=== PATIENT | male | born 1965 | race Caucasian/White ===

== ENCOUNTER 2017-01-19 07:12 | Day surgery (SDC) | payer OTHER ==
[2017-01-18 12:37] LABS: BASOPHILS 0.8 %; BASOPHILS ABSOLUTE 0.08 10/3/uL (0.0-0.16); EOSINOPHILS 1.4 %; EOSINOPHILS ABSOLUTE 0.14 10/3/uL (0.0-0.53); HEMATOCRIT 46.2 % (40.0-51.0); HEMOGLOBIN 15.8 g/dL (13.6-17.8); IMMATURE GRANULOCYTES 0.4 %; IMMATURE GRANULOCYTES ABSOLUTE 0.04 10/3/uL (0.0-0.11); LYMPHOCYTES 21.2 %; LYMPHOCYTES ABSOLUTE 2.07 10/3/uL (0.67-4.30); MEAN CORPUS HGB CONC 34.2 g/dL (32.0-36.0); MEAN CORPUSCULAR HEMOGLOB 30.2 pg (26.0-34.0); MEAN CORPUSCULAR VOLUME 88.3 fL (80-100); MEAN PLATELET VOLUME 10.5 fL (9.2-13.0); MONOCYTES 4.1 %; NEUTROPHILS 72.1 %; NEUTROPHILS ABSOLUTE 7.05 10/3/uL (2.02-8.40); PLATELET COUNT 294 10/3/uL (150-400); RBC DISTRIBUTION WIDTH 13.1 % (12.0-16.0); RED CELL COUNT 5.23 10/6/uL (4.7-6.1); WHITE BLOOD CELLS 9.8 10/3/uL (4.5-10.5)
[2017-01-18 12:39] LABS: MANUAL DIFF NO %
[2017-01-18 13:13] LABS: BUN (BLOOD UREA NITROGEN) 12 MG/DL (6-23); CALCIUM, SERUM 9.1 MG/DL (8.5-10.4); CHLORIDE, SERUM 102 MMOL/L (96-112); CO2 (CARBON DIOXIDE) 28 MMOL/L (24-34); CREATININE 0.86 MG/DL (0.70-1.30); GFR AFRICAN AMERICAN 115 ML/MIN (>=60); GFR NON AFRICAN AMERICAN 99 ML/MIN (>=60); GLUCOSE, SERUM 93 MG/DL (60-99); POTASSIUM, SERUM 4.6 MMOL/L (3.5-5.3); SODIUM, SERUM 138 MMOL/L (135-148)
--- NOTE | ~2017-01-19 | OP ---
Record Of Operation [facility] [address] [facility] [place]. [address] NAME: RAHUL ACEVEDO JR : 61 STATUS : [facility] PAT#: [id number] AGE: 51 ADM/REG DATE : 01/19/17 MR#: [id number] REPORT SERV DATE: 01/19/17 DICTATED BY: SANTIAGO KRAUSE DATE: 01/19/17 REPORT STATUS : Draft TRANSCRIBED BY: MODKalen DATE: 01/19/17 DATE OF PROCEDURE: 01/19/2017 SERVICE: Otolaryngology. PREOPERATIVE DIAGNOSES: 1. Bilateral chronic sinusitis. 2. Deviated nasal septum. POSTOPERATIVE DIAGNOSIS: 1. Bilateral chronic sinusitis. 2. Deviated nasal septum. PROCEDURES: 1. Bilateral endoscopic frontal sinusotomy. 2. Bilateral endoscopic sphenoid sinusotomy with removal of contents. 3. Bilateral endoscopic total ethmoidectomy. 4. Bilateral endoscopic maxillary antrostomy. 5. Septoplasty. SURGEON: Santiago Krause MD. ANESTHESIA: General endotracheal anesthesia. ESTIMATED BLOOD LOSS: 20 mL. COMPLICATIONS: None. SPECIMEN: 1. Nasal bone and cartilage. 2. Right nasal contents. 3. Left nasal contents. FINDINGS: The patient had a sharply deviated bony nasal septum to the right. Had thick inspissated infected ethmoid cells on both sides, and a thick mucus and polyps in the sphenoid sinus bilaterally. STATEMENT OF MEDICAL NECESSITY: This is a 51-year-old male, who presented to me with history of chronic headaches. He had been tried on standard allergy therapy including topical nasal steroid, nasal rinses. He had also been on several rounds of antibiotics and failing to get relief. CT scan showed shields sinus disease. Given this history, I recommended functional endoscopic sinus surgery and correction of his deviated nasal septum. STATEMENT OF OPERATION: The patient was brought to the operating room in supine position, transferred over to the operating room table. After pressure points were padded and general endotracheal anesthesia was established, his nose was prepared with 4% topical cocaine Record Of Operation [facility] [address] [place]. [address] NAME: RAHUL ACEVEDO JR : 61 STATUS : [facility] PAT#: [id number] AGE: 51 ADM/REG DATE : 01/19/17 MR#: [id number] REPORT SERV DATE: 01/19/17 DICTATED BY: SANTIAGO KRAUSE DATE: 01/19/17 REPORT STATUS : Draft TRANSCRIBED BY: EJ DATE: 01/19/17 soaked pledgets followed by injection of 1% lidocaine with epinephrine. His head was placed in the reverse Trendelenburg position. The [employer] image guidance system was calibrated and found to be working. Once this was completed, the patient was draped out for sinonasal surgery. A Devante's incision was made on the left side. The septal flap was elevated in the subperichondrial and subperiosteal plane on the left side with a Grupo elevator. The bony cartilaginous junction was gently with a Grupo elevator and the contralateral mucoperiosteum was elevated off the bony nasal septum. Once this was completed, the portion of the deviated bony septum was isolated first by making a superior cut, and then an inferior cut. The portion of the deviated bony septum was then removed with a Judy forceps. Once this was completed, the Devante's incision was closed with three interrupted 4-0 chromic gut sutures. Next, using a 0-degree endoscope, the right side of the nose was visualized. Injections were performed at the root of the middle turbinate lateral nasal wall and anterior head of the middle turbinate. The turbinate was gently medialized. There was a small radhika bullosa that was crushed in the mean time, then using a 45 degree scope, the frontal sinus outflow tract was evaluated. There was polypoid mucosa covering the natural outflow. Using the [employer] RELIEVA Balloon System, I was able to thread the wire into the frontal sinus. I was able to confirm accurate placement with pinpoint light distribution over the frontal sinus. I advanced the balloon over the wire, and inflated three separate times to 12 atmospheres for 3 seconds. The balloon and wire were removed. The 45 degree scope was used to confirm wide outflow tract. This process was repeated for the right side. The same balloon system was used to dilate both the maxillary sinus os. I did keep the uncinate process intact on both sides. There was some thick mucus. I irrigated and suctioned out at the left maxillary sinus. Again, I achieved successful ballooning of the maxillary sinus os to 12 atmospheres for 3 seconds. I did two separate inflations on each sinus. Next, I injected the nasal septum with 1% lidocaine with epinephrine all the way back to the face of the sphenoid, and then on the patient's right- hand side, I entered into a posterior ethmoid cell. On the CT scan, this posterior ethmoid cell was right where the natural os should be and was effectively blocking the sphenoid sinus on that side. I went to the right side, performed the same injection method, and I was able to successfully cannulate the sphenoid ostium with the wire and balloon. I inflated it to 12 atmospheres for 3 seconds. We got a wide sphenoidotomy. This in turn also helped me using image guidance to determine that I had not passed through the posterior wall of the pneumatized air cell into the sphenoid sinus on the left. Next, on the left- hand side, I removed all the anterior and posterior ethmoid cells carefully with straight Blakesley forceps and a microdebrider. The skull base and the lamina papyracea were well- visualized and confirmed with image guidance. I followed this all the way back to the posterior ethmoid cell that I had opened previously. Then using image guidance, I poked through the posterior wall of the posterior ethmoid cell into the sphenoid sinus and I widen the sinusotomy with a Kerrison rongeur. Once I made an entry into the sinus, thick inspissated mucus was removed, and suctioned from the sinus cavity itself. I made a wide osteotomy crossing the trans sinus septum in the middle and connecting it with the right sphenoid sinus. Once this was completed, I used my landmark of the skull base to work from posterior to anterior removing all the remaining posterior and anterior ethmoid cells. I got to the frontal sinus. I removed some agger nasi cells and polypoid mucosa around the frontal sinus outflow tract. I repeated this process for the right-hand side again carefully removing all the air cells between the skull base and lamina papyracea in the septum working posterior to anteriorly. Once I was satisfied that I removed all the Record Of Operation [facility] [address] [facility] [id number] NAME: RAHUL ACEVEDO : 61 STATUS : [facility] PAT#: [id number] AGE: 51 ADM/REG DATE : 01/19/17 MR#: [id number] REPORT SERV DATE: 01/19/17 DICTATED BY: SANTIAGO KRAUSE DATE: 01/19/17 REPORT STATUS : Draft TRANSCRIBED BY: EJ DATE: 01/19/17 diseased tissue and widely opened the sinuses, I used Stammberger Sinu-Foam to coat the lining of the sinus on both sides. I allowed that to sit and I suctioned off the excess. Once the excess was suctioned out thoroughly, and I had established adequate hemostasis, I placed Propel eluting stents in both sides in the standard fashion between the middle turbinate and the lateral nasal wall filling the ethmoid cavity. I confirmed appropriate placement with the 0 degree SinuScope. When this was completed, I removed the scope. I placed two Hernandez splints coated in bacitracin and secured it to the anterior septum with a 2 0 nylon stitch. I then suctioned out the stomach and oropharynx thoroughly with an orogastric tube. This concluded the case. I turned the patient back over to Anesthesia, where he was awoken, was extubated, and transferred to the PACU in stable condition. PS/EJ Santiago Krause MD / [id number] CC: MD Caro Soto M.D.
[~2017-01-19 07:12] MED LIST: ALTA5 PO; BYSTOLIC2.5 MG PO; EXCEDRIN TENSI1 EACH PO; HALF81 PO; LIPITOR40 PO; NITROSTAT0.4 MG SL; PROTONIX PO; ZOLOFT25 MG PO
== END 2017-01-19 16:36 | disposition home or self-care (01) ==
LOC: SDC 07:12
PROVIDERS: Otolaryngology
PROC: 09TV4ZZ Resection of Left Ethmoid Sinus, Percutaneous Endoscopic Approach (ICD-10-PCS; 2017-01-19)
PROC: 09TU4ZZ Resection of Right Ethmoid Sinus, Percutaneous Endoscopic Approach (ICD-10-PCS; 2017-01-19)
PROC: 099R4ZZ Drainage of Left Maxillary Sinus, Percutaneous Endoscopic Approach (ICD-10-PCS; 2017-01-19)
PROC: 099Q4ZZ Drainage of Right Maxillary Sinus, Percutaneous Endoscopic Approach (ICD-10-PCS; 2017-01-19)
PROC: 099M0ZZ Drainage of Nasal Septum, Open Approach (ICD-10-PCS; principal; 2017-01-19 08:15)
PROC: 09BT4ZZ Excision of Left Frontal Sinus, Percutaneous Endoscopic Approach (ICD-10-PCS; 2017-01-19 08:15)
PROC: 09BS4ZZ Excision of Right Frontal Sinus, Percutaneous Endoscopic Approach (ICD-10-PCS; 2017-01-19 08:15)
DX: J32.9 Chronic sinusitis, unspecified (principal); J34.2 Deviated nasal septum; F17.210 Nicotine dependence, cigarettes, uncomplicated; I25.10 Atherosclerotic heart disease of native coronary artery without angina pectoris; I25.2 Old myocardial infarction; I10 Essential (primary) hypertension; F41.9 Anxiety disorder, unspecified; E78.00 Pure hypercholesterolemia, unspecified; K21.9 Gastro-esophageal reflux disease without esophagitis; Z95.1 Presence of aortocoronary bypass graft; Z79.82 Long term (current) use of aspirin; Z79.2 Long term (current) use of antibiotics; Z79.899 Other long term (current) drug therapy
CPT/HCPCS: 80048; 85025; 88300; 88305; 93005; A9270-GY; C1725; C1726; C2625; J0690; J2250; J2270; J2370; J2405; J2710; J3010

== ENCOUNTER 2017-04-29 05:31 | Day surgery (SDC) | payer OTHER ==
[2017-04-26 12:38] LABS: BASOPHILS 0.6 %; BASOPHILS ABSOLUTE 0.05 10/3/uL (0.0-0.16); EOSINOPHILS 1.7 %; EOSINOPHILS ABSOLUTE 0.14 10/3/uL (0.0-0.53); HEMATOCRIT 45.1 % (40.0-51.0); HEMOGLOBIN 15.3 g/dL (13.6-17.8); IMMATURE GRANULOCYTES 0.5 %; IMMATURE GRANULOCYTES ABSOLUTE 0.04 10/3/uL (0.0-0.11); LYMPHOCYTES 25.3 %; LYMPHOCYTES ABSOLUTE 2.09 10/3/uL (0.67-4.30); MANUAL DIFF NO %; MEAN CORPUS HGB CONC 33.9 g/dL (32.0-36.0); MEAN CORPUSCULAR HEMOGLOB 30.5 pg (26.0-34.0); MEAN PLATELET VOLUME 10.7 fL (9.2-13.0); MONOCYTES 5.6 %; MONOCYTES ABSOLUTE 0.46 10/3/uL (0.21-1.20); NEUTROPHILS 66.3 %; NEUTROPHILS ABSOLUTE 5.49 10/3/uL (2.02-8.40); PLATELET COUNT 285 10/3/uL (150-400); RBC DISTRIBUTION WIDTH 13.1 % (12.0-16.0); RED CELL COUNT 5.01 10/6/uL (4.7-6.1); WHITE BLOOD CELLS 8.3 10/3/uL (4.5-10.5)
[2017-04-26 12:40] LABS: PARTIAL THROMBO TIME 27.2 SEC (22.5-37.2); PROTIME (NOT ORD) 13.1 SEC (12.0-14.5)
[2017-04-26 13:01] LABS: BUN (BLOOD UREA NITROGEN) 14 MG/DL (6-23); CALCIUM, SERUM 9.4 MG/DL (8.5-10.4); CHLORIDE, SERUM 106 MMOL/L (96-112); CO2 (CARBON DIOXIDE) 29 MMOL/L (24-34); CREATININE 0.86 MG/DL (0.70-1.30); GFR AFRICAN AMERICAN 115 ML/MIN (>=60); GFR NON AFRICAN AMERICAN 99 ML/MIN (>=60); GLUCOSE, SERUM 93 MG/DL (60-99); POTASSIUM, SERUM 4.2 MMOL/L (3.5-5.3); SODIUM, SERUM 139 MMOL/L (135-148)
--- NOTE | ~2017-04-29 | OP ---
Record Of Operation [facility] [address] [place]. [address] NAME: RAHUL ACEVEDO JR : 61 STATUS : [facility]#: [id number] AGE: 51 ADM/REG DATE : 04/29/17 MR#: [id number] REPORT SERV DATE: 05/04/17 DICTATED BY: SOM HILL DATE: 05/03/17 REPORT STATUS : Draft TRANSCRIBED BY: EJ DATE: 05/03/17 DATE OF PROCEDURE: 04/29/2017 PREOPERATIVE DIAGNOSIS: Right conductive hearing loss. POSTOPERATIVE DIAGNOSES: Right conductive hearing loss, otosclerosis. OPERATIVE PROCEDURE PERFORMED: Right middle ear exploration and stapedotomy with application of a Big Easy Titanium and Nikolski prosthesis. INDICATIONS AND SIGNIFICANT HISTORY: The patient is a 51-year-old male with a significant history of several years of large conductive hearing loss. Upon evaluation in the office, this appeared to represent otosclerosis, but middle ear exploration was offered versus observation for his otherwise asymptomatic conductive hearing loss versus amplification. The patient after discussion of risks, benefits, and an expected outcomes, chose surgical exploration and potential repair. Risks and benefits of the procedure were discussed with the patient, including potential for increased sensorineural hearing loss, failure to resolve conductive hearing loss, inability to place prosthesis, facial nerve injury as well as permanent and temporary changes to the taste. OPERATIVE PROCEDURE AND FINDINGS: After informed consent was obtained, the patient was brought to the operating room and placed on the operating room table in supine position, at which point general endotracheal anesthesia was induced by the Anesthesia Service and the right facial nerve monitor set up to monitor orbicularis faheem and orbicularis oculi muscles throughout the course of the case. Through a fairly large ear canal, a 6.5 x 7 mm speculum was used and the ear canal was injected with approximately 1.5 mL of 2% lidocaine and 1:100,000 epinephrine. Canal incision was made from approximately 12 o'clock position around the posterior aspect of the canal to the approximately 6 o'clock position. Tympanomeatal flap was then elevated and the middle ear was entered with a Travis needle. The membranous annulus was then elevated using a gimmick elevator. Attention was then turned toward the ossicular chain. When ossicular chain was palpated, there was noted to be good mobility of the malleus and the incus, however, the stapes did appear to be fixed. There was no evidence of ossicular discontinuity otherwise. At this point, a joint knife was used to separate the incudostapedial joint. A CO2 laser set to 2 lee single pulse mode was used to lyse the stapedius tendon. Great care was taken to preserve the chorda tympani nerve throughout the course of the case. The posterior piedad of the stapes was then also divided with a CO2 laser and the stapes superstructure was down fractured. This was then removed and exposed the stapes footplate. Dissection in the center of the footplate was then selected and tightly focused beam in a wilmer pattern with approximately six fires was used to perform a stapedotomy. There was no gush of fluid from the inner ear. Next, standard 4.25 mm Big Easy Titanium and Nikolski stapes prosthesis was selected. This was the straight and not the offset diversion and was placed into the middle ear space. After great difficulty in getting both the piston into the well as well as the hook over the incus, this was finally placed. There was no real problem with a prosthesis itself nor with the patient's overall general anatomy, however, exact fitment and exact angle of the prosthesis into the well was fairly difficult. The facial nerve was noted to be intact Record Of Operation [address] [place]. [address] NAME: RAHUL ACEVEDO : 61 STATUS : [facility] PAT#: [id number] AGE: 51 ADM/REG DATE : 04/29/17 MR#: [id number] REPORT SERV DATE: 05/04/17 DICTATED BY: SOM HILL DATE: 05/03/17 REPORT STATUS : Draft TRANSCRIBED BY: MODL DATE: 05/03/17 above the oval window. The prosthesis was then hooked over the incus, was crimped gently with a prosthesis crimper and a small amount of fat from the lobule of the ear was packed around the prosthesis piston. The patient then had the drum replaced, had placement of Gelfoam over the incision, placed in the external auditory canal and was turned back toward anesthesia, aroused from anesthesia, and taken to the post anesthesia care unit in satisfactory condition. COMPLICATIONS: None. ESTIMATED BLOOD LOSS: Less than 10 mL. IV FLUIDS: Per Anesthesia. DLA/MODL Som Hill M.D. / [id number] CC: Gladys Lozano M.D.
== END 2017-04-29 23:59 | disposition home or self-care (01) ==
LOC: SDC 05:31
PROVIDERS: Otolaryngology
PROC: 099 Ear, Nose, Sinus, Drainage (ICD-10-PCS; principal; 2017-04-29 06:45)
PROC: 09J Ear, Nose, Sinus, Inspection (ICD-10-PCS; 2017-04-29 06:45)
DX: H90.2 Conductive hearing loss, unspecified (principal); H80.91 Unspecified otosclerosis, right ear; I10 Essential (primary) hypertension; E78.5 Hyperlipidemia, unspecified; E66.01 Morbid (severe) obesity due to excess calories; I25.10 Atherosclerotic heart disease of native coronary artery without angina pectoris; F41.9 Anxiety disorder, unspecified; Z95.5 Presence of coronary angioplasty implant and graft; Z68.37 Body mass index [BMI] 37.0-37.9, adult; Z98.890 Other specified postprocedural states
CPT/HCPCS: 80048; 85025; 85610; 85730; 88304; 88311; 93005; A9270-GY; J0690; J2250; J2405; J2710; J3010

== ENCOUNTER 2017-05-10 13:28 | Emergency (ER) | payer OTHER ==
[2017-05-10 14:02] LABS: BASOPHILS 0.6 %; BASOPHILS ABSOLUTE 0.06 10/3/uL (0.0-0.16); EOSINOPHILS 1.5 %; EOSINOPHILS ABSOLUTE 0.15 10/3/uL (0.0-0.53); ER CBC TAT 0 Hrs 09 Mins; HEMATOCRIT 42.6 % (40.0-51.0); IMMATURE GRANULOCYTES 0.5 %; IMMATURE GRANULOCYTES ABSOLUTE 0.05 10/3/uL (0.0-0.11); LYMPHOCYTES ABSOLUTE 2.27 10/3/uL (0.67-4.30); MANUAL DIFF NO %; MEAN CORPUS HGB CONC 35.2 g/dL (32.0-36.0); MEAN CORPUSCULAR HEMOGLOB 31.1 pg (26.0-34.0); MEAN CORPUSCULAR VOLUME 88.4 fL (80-100); MEAN PLATELET VOLUME 10.9 fL (9.2-13.0); MONOCYTES 6.1 %; NEUTROPHILS 68.3 %; NEUTROPHILS ABSOLUTE 6.75 10/3/uL (2.02-8.40); PLATELET COUNT 309 10/3/uL (150-400); RBC DISTRIBUTION WIDTH 12.8 % (12.0-16.0); RED CELL COUNT 4.82 10/6/uL (4.7-6.1); WHITE BLOOD CELLS 9.9 10/3/uL (4.5-10.5)
[2017-05-10 14:14] LABS: PARTIAL THROMBO TIME 26.8 SEC (22.5-37.2); PROTIME (NOT ORD) 12.8 SEC (12.0-14.5)
[2017-05-10 14:17] LABS: CALCIUM, SERUM 9.3 MG/DL (8.5-10.4); CHEST PAIN PROFILE TAT 0 Hrs 20 Mins; CHLORIDE, SERUM 106 MMOL/L (96-112); CO2 (CARBON DIOXIDE) 26 MMOL/L (24-34); CREATININE 1.14 MG/DL (0.70-1.30); GFR AFRICAN AMERICAN 85 ML/MIN (>=60); GFR NON AFRICAN AMERICAN 73 ML/MIN (>=60); GLUCOSE, SERUM 96 MG/DL (60-99); POTASSIUM, SERUM 4.1 MMOL/L (3.5-5.3); SODIUM, SERUM 140 MMOL/L (135-148); TROPONIN I <0.02 NG/ML (<0.05)
[2017-05-10 14:18] LABS: BUN (BLOOD UREA NITROGEN) 18 MG/DL (6-23)
== END 2017-05-10 20:46 | disposition home or self-care (01) ==
LOC: ER 13:28
PROVIDERS: Emergency Medicine
DX: L50.0 Allergic urticaria (principal); R07.89 Other chest pain; I25.10 Atherosclerotic heart disease of native coronary artery without angina pectoris; E11.9 Type 2 diabetes mellitus without complications; Z95.1 Presence of aortocoronary bypass graft; Z79.82 Long term (current) use of aspirin; Z79.899 Other long term (current) drug therapy
CPT/HCPCS: 71020; 80048; 83735; 84484; 85025; 85610; 85730; 93005; 96374; 96375; 96376; 99285; J1200; J2930